=== PATIENT | male | born 1950 | race Caucasian/White ===

== ENCOUNTER → 2018-12-13 | Outpatient (CLI) | payer MEDICARE ==
[~2018-12-13] MED LIST: ASC500 PO; ASP325 PO; CALC500T42 PO; CRAN400C2 PO; CYAN100T31 PO; DOC100 PO; FISH OIL1 CAP PO; FLAX100030 PO; GARL100T2 PO; GLUC-198 PO; LOR5/325 PO; MULT-1335 PO; PAN40 PO; PANTOPRAZOLE PO; PER PO; SUC1 PO; VICODIN PO; VITA1CAP46 PO; VITE400 PO; ZINC15TA4 PO
[2018-12-13 14:41] LABS: LDL CHOLESTEROL 126 mg/dl
== END ==
LOC: LAB 14:09
PROVIDERS: ATTEND Nurse Practitioner Family
DX: E78.5 Hyperlipidemia, unspecified (principal); I10 Essential (primary) hypertension
CPT/HCPCS: 36415; 82040; 82247; 82310; 82374; 82435; 82465; 82565; 82947; 83718; 84075; 84132; 84155; 84295; 84450; 84460; 84478; 84520